=== PATIENT | male | born 1990 | race Caucasian/White ===

== ENCOUNTER 2019-11-04 13:50 | Emergency (ER) | payer MEDICAID, SELFPAY ==
[~2019-11-04] VITALS: Ht 172.7 cm; Wt 62.9 kg
--- NOTE | 2019-11-04 14:27 | REP ---
Clinical: Trauma. Technique: AP, lateral, bilateral oblique and sunrise views right knee . Findings: The osseous structures and joint spaces are intact and normal. There is no evidence for acute fracture or dislocation. No joint effusion is appreciated. Surrounding soft tissues are unremarkable. No subcutaneous emphysema or radiodense foreign body. Impression: Normal examination. No acute fracture or dislocation. Electronically Signed by Radu Mccall MD 11/04/2019 02:18 P
[2019-11-04] MEDS ORDERED: KETOROLAC 60 MG/2 ML VIAL (J1885) IM ONE (16:30)
[2019-11-04] MEDS ORDERED: ACETAMINOPHEN 325 MG TAB PO ONE (16:30)
[2019-11-04] MEDS ORDERED: KETO10TAB PO (17:22)
[2019-11-04 17:32] VITALS: BP 126/88
== END 2019-11-04 17:36 | disposition home or self-care (01) ==
LOC: M ED 13:50
DX: S76.311A Strain of muscle, fascia and tendon of the posterior muscle group at thigh level, right thigh, initial encounter (principal); W18.49XA Other slipping, tripping and stumbling without falling, initial encounter; Y92.098 Other place in other non-institutional residence as the place of occurrence of the external cause; F17.200 Nicotine dependence, unspecified, uncomplicated
CPT/HCPCS: 73564; 96372; 99284; J1885

== ENCOUNTER 2019-11-25 15:20 | Emergency (ER) | payer MEDICAID, OTHER ==
[~2019-11-25] VITALS: Ht 170.2 cm; Wt 62.5 kg
[~2019-11-25 15:20] MED LIST: KETO10TAB PO
--- NOTE | 2019-11-25 18:04 | REP ---
HISTORY: Pain and swelling. COMPARISON: 11/04/2019 which was normal. There is artifact caused by the patients garment. With that exception, there is no significant change. There is no evidence of an acute fracture. Electronically Signed by Mark Calabrese DO 11/25/2019 07:33 P
[2019-11-25 18:11] VITALS: BP 125/84
[2019-11-25] MEDS ORDERED: IBUP-1022 PO (18:12)
== END 2019-11-25 18:22 | disposition home or self-care (01) ==
LOC: M ED 15:20
DX: S86.911A Strain of unspecified muscle(s) and tendon(s) at lower leg level, right leg, initial encounter (principal); X58.XXXA Exposure to other specified factors, initial encounter; Y92.099 Unspecified place in other non-institutional residence as the place of occurrence of the external cause; Y93.9 Activity, unspecified; Y99.9 Unspecified external cause status

== ENCOUNTER → 2020-07-23 | Outpatient (CLI) | payer OTHER ==
[~2020-07-23] MED LIST changes: +IBUP-1022 PO
== END ==
LOC: M LABSMTC 11:07
PROVIDERS: ATTEND Orthopaedic Surgery
DX: Z01.812 Encounter for preprocedural laboratory examination (principal); Z20.828 Contact with and (suspected) exposure to other viral communicable diseases

== ENCOUNTER 2022-08-13 02:17 | Emergency (ER) | payer OTHER ==
[~2022-08-13] VITALS: Ht 172.7 cm; Wt 58.5 kg
[2022-08-13 02:18] VITALS: BP 175/99
[2022-08-13] MEDS ORDERED: NAPROXEN 250 MG TAB PO ONE (03:50)
[2022-08-13] MEDS ORDERED: NAPR-837 PO (03:50)
== END 2022-08-13 04:35 | disposition home or self-care (01) ==
LOC: M ED 02:17
DX: M25.532 Pain in left wrist (principal); Y99.0 Civilian activity done for income or pay; F17.200 Nicotine dependence, unspecified, uncomplicated

== ENCOUNTER 2024-01-15 07:55 | Emergency (ER) | payer OTHER, SELFPAY ==
[~2024-01-15] VITALS: Ht 152.4 cm; Wt 75.0 kg
[~2024-01-15 07:55] MED LIST changes: +NAPR-837 PO
[2024-01-15 08:02] VITALS: BP 151/104; TEMP 98.4; O2SAT 97
[2024-01-15] MEDS ORDERED: BAYE500T2 PO (08:10)
[2024-01-15] MEDS ORDERED: DICL75TA PO (09:30)
[2024-01-15] MEDS ORDERED: METH-1165 PO (09:30)
== END 2024-01-15 09:42 | disposition home or self-care (01) ==
LOC: M ED 07:55
DX: S16.1XXA Strain of muscle, fascia and tendon at neck level, initial encounter (principal); S46.012A Strain of muscle(s) and tendon(s) of the rotator cuff of left shoulder, initial encounter; Y92.9 Unspecified place or not applicable; Y93.9 Activity, unspecified; Y99.9 Unspecified external cause status; F17.210 Nicotine dependence, cigarettes, uncomplicated; Z79.1 Long term (current) use of non-steroidal anti-inflammatories (NSAID); Z79.899 Other long term (current) drug therapy